=== PATIENT | female | born 1995 | race Caucasian/White ===

== ENCOUNTER 2021-02-27 17:15 | Emergency (ER) | payer OTHER ==
[~2021-02-27] VITALS: Ht 162.6 cm; Wt 77.1 kg
[2021-02-27] MEDS ORDERED: CEPH500 PO (18:48)
== END 2021-02-27 19:03 | disposition home or self-care (01) ==
LOC: ER 17:15
DX: S80.252A Superficial foreign body, left knee, initial encounter (principal); L03.116 Cellulitis of left lower limb; Z23 Encounter for immunization; W45.8XXA Other foreign body or object entering through skin, initial encounter
CPT/HCPCS: 90471; 90714; 99283-25